=== PATIENT | male | born 2000 | race Two or more races ===

== ENCOUNTER 2025-02-19 12:27 | Emergency (ER) | payer SELFPAY ==
[2025-02-19 12:30] VITALS: BMI 25.7
[2025-02-19 13:05] VITALS: BP 143/88; PULSE 66; RESP 18; TEMP 37; O2SAT 99
--- NOTE | 2025-02-19 13:26 | XR_ITS ---
Examination: Nasal bones 3 views Technique: Calos, right lateral left lateral nasal series 3 views Date and time: February 19, 2025, 1332 hrs. Indications: Injury to the nose today, nose pain. Findings: Nondisplaced nasal bone fractures Orbital rims are intact Impression: Acute appearing nondisplaced nasal bone fractures.
--- NOTE | 2025-02-19 13:27 | PD.EDEPIST ---
ED Epistaxis RME/HPI General Chief complaint: Epistaxis/Nasal Foreign Body Stated complaint: NOSEBLEED Time Seen by Provider: 02/19/25 13:02 Arrival date/time: 02/19/25 12:27 This is a 24-year-old male that comes in with complaints of hitting someone's head accidentally while on [employer]. Patient denies any loss of consciousness. Patient complains of a mild headache. Patient states that he is not having facial pain per se but he is having nasal pain. Patient has some deformity to his nose. Patient also has a nosebleed. Related Data Previous Rx's ?Medication ?Instructions ?Recorded ibuprofen 800 mg tablet 800 mg PO Q6H PRN pain #14 tabs 02/19/25 Allergies Allergy/AdvReac Type Severity Reaction Status Date / Time No Known Allergies Allergy Verified 02/19/25 12:29 Review of Systems Review of Systems Systems Reviewed: All systems reviewed, normal except as documented Past Medical History Past Medical History Comments PMH COMMENT: denies ED Exam Narrative Physical exam: VITAL SIGNS: Reviewed. GENERAL APPEARANCE: Alert and interactive, follows commands, no acute distress HEAD AND FACE: deformity to nose ENT: PERRL, conjuctiva pink and clear, eyelid no trauma, Mucous membrane moist. bilateral nosrils have dry blood, no hematoma noted NECK: Supple, nontender, no nuchal rigidity. CHEST: No tenderness, no crepitus, no paradoxical movement, no retractions. LUNGS: breathing even and unlabored HEART: Regular rate, cap refill less than 2 seconds ABDOMEN: Soft, nondistended, no guarding, nontender, no rebound, no masses, NEUROLOGICAL: Gross motor function intact sensory function intact, Appropriate for age. MUSCULOSKELETAL: low back nontender, full range of motion. EXTREMITIES: No redness no swelling no skin breakdown on bilateral foot and leg. Distal neurovascular status intact bilateral foot SKIN: Color pink, dry Course Quality Measures none Orders Category Date Time Status XR nasal bones min 3V Stat Exams 02/19/25 13:26 Completed Acetaminophen Tab [Tylenol ES Tab] Med 02/19/25 13:26 Discontinued 1,000 mg PO X1 ONE Ibuprofen Tab [Motrin Tab] Med 02/19/25 13:26 Discontinued 800 mg PO X1 ONE Vital Signs Vital signs: Vital Signs Temperature 98.6 F 02/19/25 13:05 Pulse Rate 66 02/19/25 13:05 Respiratory Rate 18 02/19/25 13:05 Blood Pressure 143/88 H 02/19/25 13:05 Pulse Oximetry (%) 99 02/19/25 13:05 Oxygen Delivery Method Room Air 02/19/25 13:05 Epistaxis MDM Narrative MDM Narrative:: Findings: Nondisplaced nasal bone fractures Orbital rims are intact Impression: Acute appearing nondisplaced nasal bone fractures. I spoke to patient at length. I let him know he will need to dollow up with primary provider in 1-2 days. Come back ro ED if symptoms change or worsen. NOse no longer bleeding. No other trauma noted. Pt verbalizes undertstanding Patient data External records reviewed:: [facility] previous records Clinical information provided by:: patient Social determinants that could affect healthcare access:: none Patient has the following chronic illnesses:: none How is presenting disease/condition affected by chronic disease/condition?: no chronic disease Evaluation data The following diagnostics were reviewed and interpreted by me:: radiology exam(s) Lab and/or radiology exams considered but not ordered:: none Interpretation Summary: see note Medications / Prescriptions Medications or Prescriptions considered but not ordered:: none Medication administrations:: Medication Administration History Discontinued Medications Acetaminophen (Acetaminophen 500 Mg Tablet) 1,000 mg PO X1 ONE Stop: 02/19/25 13:27 Last Admin: 02/19/25 14:00 Dose: 1,000 mg Documented By: Ibuprofen (Ibuprofen Tab 400 Mg Tablet) 800 mg PO X1 ONE Stop: 02/19/25 13:27 Last Admin: 02/19/25 13:59 Dose: 800 mg Documented By: see bettie Consultations Consultation(s) initiated? (list below): No Diagnosis Most likely diagnosis given after review of the tests above:: nasel bone fracture Admission Indicated Admission indicated?: not indicated Admission Request Was there a request for admission?: No Disposition Plan Disposition Plan: Discharge Discharge Attestation Discharge Attestation: The patient and all family members were given an opportunity to ask questions and understood the discharge instructions. Discharge instructions specifically effects, indications for sooner follow up or return to the emergency department, and the expected course of current diagnosis. Patient condition: Stable Discharge Plan Plan Patient Disposition: HOME (Self Care) Patient condition on transfer: Stable Prescriptions/Referrals Prescriptions/Med Rec: New ibuprofen 800 mg tablet 800 mg PO Q6H PRN (Reason: pain) Qty: 14 0RF Problem List Clinical Impression: Epistaxis, Fracture of nasal bone Patient/Caregiver Discharge Instructions Education Materials: ED Nose Fracture, with X-Ray Additional Instructions: Follow up with primary provider in 1-2 days. Come back to ED if symptoms change or worsen Print Language: Montenegrin Stand Alone Forms: [employer]iti Award Info., Patient Portal Info Letter PA/[employer] Supervising Physician PA/[employer] Supervising Physician: tracy
[2025-02-19] MEDS: IBUPROFEN TAB 400 MG TABLET 800 MG PO (13:59)
[2025-02-19] MEDS: ACETAMINOPHEN 500 MG TABLET 1000 MG PO (14:00)
== END 2025-02-19 15:20 | disposition home or self-care (01) ==
LOC: SERX 15:49
PROVIDERS: Emergency Provider Emergency Medicine
DX: S02.2XXA Fracture of nasal bones, initial encounter for closed fracture (principal); W50.0XXA Accidental hit or strike by another person, initial encounter; Y93.19 Activity, other involving water and watercraft
CPT/HCPCS: 70160; 99283; A9270